=== PATIENT | male | born 1930 | race Caucasian/White ===

== ENCOUNTER → 2016-06-08 | Outpatient (CLI) | payer MEDICARE, OTHER ==
[~2016-06-08] MED LIST: ASPIRIN EC81 MG PO; CO Q-10100 MG PO; COZAAR DPS50 MG PO; DAILY MULTIPLE1 EAC1 PO; HYTRIN5 MG PO; IRON236 MG PO; LOPRESSOR50 MG PO; MAGNESIUM250 M1 PO; PRILOSEC DPS20 MG PO; URINOZINC PROS1 EACH PO; ZOLOFT DPS100 MG PO
== END | disposition home or self-care (01) ==
LOC: RAD.S 14:06
DX: M79.604 Pain in right leg (principal); M79.89 Other specified soft tissue disorders

== ENCOUNTER 2016-07-25 11:03 | Emergency (ER) | payer MEDICARE, OTHER ==
--- NOTE | 2016-07-26 13:16 | ER ---
ADMIT: 07/25/2016 RM/LOC: ER [facility] MR#: [id number] [id number] [place], [place] [address] [address] [place] [address] Emergency Room Report SEX: M AGE: 86 : 1930 DATE: 07/25/2016 An 86-year-old gentleman with 2 days worth of chest pain, described as burning, starting at epigastric, radiating up into the chest. He had been in the hospital in March with chest pain. At that time, his workup including a cardiac stress test, the results of which were all negative. See T-sheet for remainder of history and physical. Cardiac workup here was unremarkable. Stress test was reviewed from March as well as his prior hospitalization records. The patient was discharged with diagnosis of atypical chest pain. Instructed to follow up with his primary doctor this coming week. DIAGNOSIS: Atypical chest pain. Ridge Burnham MD/ aliya JOB #: [id number] CC: Ridge Burnham MD, Attending Physician Arnie Olivia MD, Family Physician
== END 2016-07-25 12:20 | disposition home or self-care (01) ==
LOC: ER 11:03
DX: R07.89 Other chest pain (principal); I10 Essential (primary) hypertension; Z88.0 Allergy status to penicillin; Z79.82 Long term (current) use of aspirin; Z79.899 Other long term (current) drug therapy

== ENCOUNTER 2016-08-07 18:45 | Emergency (ER) | payer MEDICARE, OTHER ==
--- NOTE | 2016-08-09 01:40 | ER ---
ADMIT: 08/07/2016 RM/LOC: ER [facility] MR#: [id number] [id number] [place], [place] [address] [address] [place] [address] Emergency Room Report SEX: M AGE: 86 : 1930 DATE: 08/07/2016 ADDENDUM: CHIEF COMPLAINT: Chest pain. HISTORY OF PRESENT ILLNESS: The patient is an 86-year-old male, comes in complaining of some epigastric abdominal/chest pain. These symptoms began about 2 hours ago and he took some Gaviscon and the pain went away quickly after that. He came in to get checked out. He did have a similar episode that happened about 10 days ago, was checked out at that time with no acute findings and was discharged home. He had another episode about 3-4 months ago when he came in. At that time, he was admitted and had an echocardiogram and a stress test which were both unremarkable. He had seen Dr. Beck for Cardiology for this in the past. With this, he had no shortness of breath, no diaphoresis, no lightheadedness, no radiation of the pain. He is currently chest pain-free. He denies any recent fevers, chills, illness, or change in bowel or bladder function. PAST MEDICAL HISTORY: Significant for hypertension, GERD, a very large hiatal hernia. MEDICATIONS: See nursing note for medications. It is noted he takes an aspirin, some blood pressure medication. ALLERGIES: PENICILLIN. SOCIAL HISTORY: He denies smoking, drug, or alcohol use. PHYSICAL EXAMINATION: GENERAL: The patient is alert, oriented, no distress. VITAL SIGNS: His blood pressure initially was 180/81. That improved to 160s over 80 later in the stay. Pulse is 83, respirations 21, temp was 96, sats 98%. GENERAL: The patient is in no distress. NECK: Supple. HEART: Regular rate and rhythm. LUNGS: Clear to auscultation. ABDOMEN: Soft, nontender, and nondistended. SKIN: Warm and dry. EXTREMITIES: He has good pulses in all 4 extremities. No skin lesions or rashes. IMAGING DATA: EKG shows sinus rhythm, rate of 77, with a right bundle-branch block. No signs of ST-elevation or acute NE or ischemia. ADMIT: 08/07/2016 RM/LOC: ER [facility] MR#: [id number] [address] [address] [address] [facility] [place] [address] Emergency Room Report SEX: M AGE: 86 : 1930 EMERGENCY DEPARTMENT COURSE: The patient was symptom-free while he was in the ER. His description, it sounds like he did have some epigastric abdominal pain that got better very shortly after taking Gaviscon. He has had several evaluations for chest pain in the past several months and those have checked out without any acute findings of cardiac disease. The patient does feel comfortable going home the way he is feeling now. At this point, we will be discharging him home with instructions that he can return to the ER at any point for concerning symptoms. Otherwise, he is to follow up at Dr. Olivia's office in the next week. DIAGNOSIS: Epigastric pain. Andrew Alonso MD/ aliya JOB #: [id number] CC: Andrew Alonso MD, Attending Physician Arnie Olivia MD, Family Physician
== END 2016-08-07 19:58 | disposition home or self-care (01) ==
LOC: ER 18:45
DX: R10.13 Epigastric pain (principal); I10 Essential (primary) hypertension; Z79.82 Long term (current) use of aspirin; Z79.899 Other long term (current) drug therapy; Z88.0 Allergy status to penicillin